=== PATIENT | female | born 1970 | race Two or more races ===

== ENCOUNTER 2017-05-14 09:52 | Inpatient (IN) | payer BC ==
[~2017-05-14] VITALS: Ht 157.5 cm; Wt 117.9 kg
[2017-05-14] VITALS (23 sets, daily range): BP systolic 102–161; BP diastolic 53–91
--- NOTE | 2017-05-14 09:52 | NUR ---
BIBRA 77 C/O LIGHTHEADEDNESS, DENIES CHEST PAIN. PLACED ON MONITOR. AWAITING MD ORDER
--- NOTE | 2017-05-14 10:41 | NUR ---
CODE STROKE ACTIVATED
--- NOTE | 2017-05-14 10:42 | NUR ---
LAC #18 IV ACCESS. BLOOD SMAPLE COLLECTED SENT TO LAB
--- NOTE | 2017-05-14 10:46 | NUR ---
PT TAKEN TO CT VIA ACLS PROTOCOL
[2017-05-14 10:52] LABS: BASOPHILS # (AUTO) 0.1 /CMM (0.0-0.2); BASOPHILS % (AUTO) 1.1 % (0.0-2.0); EOSINOPHILS # (AUTO) 0.1 /CMM (0.0-0.7); EOSINOPHILS % (AUTO) 0.7 % (0.0-6.0); HEMATOCRIT 43 % (33-45); HEMOGLOBIN 14.5 g/dL (11.5-14.8); LYMPHOCYTES # (AUTO) 2.3 /CMM (0.8-4.8); LYMPHOCYTES % (AUTO) 21.4 % (20.0-44.0); MEAN CORPUSCULAR HEMOGLOBIN 31 PG (26.0-33.0); MEAN CORPUSCULAR HGB CONC 34 g/dl (31.0-36.0); MEAN CORPUSCULAR VOLUME 92 fL (82-100); MONOCYTES # (AUTO) 0.4 /CMM (0.1-1.30); MONOCYTES % (AUTO) 3.8 % (2.0-12.0); NEUTROPHILS # (AUTO) 7.7 /CMM (1.8-8.9); PLATELET COUNT (AUTO) 226 /CMM (150-450); RDW COEFFICIENT OF VARIATION 12.4 (11.5-15.0); RED BLOOD CELL COUNT(AUTO) 4.66 MIL/uL (4.0-5.2); WHITE BLOOD COUNT (AUTO) 10.6 K/uL (4.3-11.0)
--- NOTE | 2017-05-14 10:55 | NUR ---
PT BACK FROM CT
[2017-05-14 11:01] LABS: CALCIUM, SERUM 9.1 mg/dL (8.5-10.1); CARBON DIOXIDE 25 mmol/L (21-32); CHLORIDE 104 mmol/L (98-107); GLUCOSE 113 mg/dL (74-106); POTASSIUM 4.4 mmol/L (3.5-5.1); SODIUM SERUM 138 mmol/L (136-145); UREA NITROGEN, BLOOD 10 mg/dL (7-18)
[2017-05-14 11:05] LABS: INR 0.89 (0.87-1.13); PROTHROMBIN TIME 9.3 SECS (9.5-12.7)
[2017-05-14 11:07] LABS: ALANINE AMINOTRANSFERASE 31 U/L (12-78); ALBUMIN 3.9 g/dL (3.4-5.0); ALKALINE PHOSPHATASE 61 U/L (46-116); ASPARTATE AMINOTRANSFERASE 26 U/L (15-37); BILIRUBIN,DIRECT 0.1 mg/dL (0.0-0.2); BILIRUBIN,TOTAL 0.4 mg/dL (0.2-1.0); TOTAL PROTEIN, SERUM 7.8 g/dL (6.4-8.2)
[2017-05-14 11:09] LABS: TROPONIN I < 0.017 ng/mL (0.00-0.056)
[2017-05-14] MEDS ORDERED: DEXAMETHASONE SOD PHOSPHATE 10 MG/ML VIAL IV ONE (12:30)
[2017-05-14] MEDS ORDERED: DEXAMETHASONE SOD PHOSPHATE 4 MG/ML VIAL ONE (12:44)
--- NOTE | 2017-05-14 12:57 | NUR ---
PANEL CALL FOR PT ADMIT. DR WILFRED VAZQUEZ.
--- NOTE | 2017-05-14 13:10 | NUR ---
VERBAL ORDER ATIVAN 2MG VIA LAC #[address] PUENTE
--- NOTE | 2017-05-14 13:20 | NUR ---
CALLED HOUSE SUP FOR ICU BED
[2017-05-14] MEDS ORDERED: LORAZEPAM INJ 2 MG/ML VIAL IV ONE (13:30)
[2017-05-14] MEDS ORDERED: LORAZEPAM INJ 2 MG/ML VIAL ONE (13:33)
[2017-05-14] MEDS: LEVETIRACETAM (500MG) 500 MG in IV NS 0.9% 100 ML IV SCH ×2 (13:50→17:15)
--- NOTE | 2017-05-14 14:00 | NUR ---
GAVE REPORT TO PINA PEREZ ALTERED MENTAL STATUS BRAIN MASS SEIZURE. TRANSFER VIA ACLS PROTOCOL DR MORRISON ADMITTING. ICU
--- NOTE | 2017-05-14 14:12 | NUR ---
TEXTED DR. BLAS MRI APPROVAL.
--- NOTE | 2017-05-14 14:21 | NUR ---
TEXTED DR. BLAS FOR MRI BRAIN W/WO APPROVAL.
--- NOTE | 2017-05-14 14:35 | NUR ---
AUTOMOTIVE QUALITY MANAGER RECEIVED PATIENT FROM THE ER ON A GURNEY. 3 PERSON ASSIST TRANSFER. STABLE VITAL SINGS. SINUS RHYTHM ON MONITOR. AFEBRILE. PATIENT NOTED TO HAVE EXPRESSIVE APHAGIA. RIGHT SIDED WEAKNESS. NIH STROKE SCALE DONE. FAMILY AT BEDSIDE. WILL CONTINUE TO MONITOR AND PROVIDE CARE.
[2017-05-14] MEDS ORDERED: MAG HYDROX/AL HYDROX/SIMETH 30 ML UDC PO PRN (16:00)
[2017-05-14] MEDS ORDERED: HYDROCODONE/APAP 5/325MG 1 EACH TABLET PO PRN (16:00)
[2017-05-14] MEDS ORDERED: LORAZEPAM INJ 2 MG/ML VIAL IV PRN (16:00)
[2017-05-14] MEDS ORDERED: MAGNESIUM HYDROXIDE 30 ML UDC PO PRN (16:00)
[2017-05-14] MEDS ORDERED: ONDANSETRON HCL/PF 4 MG/2 ML VIAL IVP PRN (16:00)
[2017-05-14] MEDS ORDERED: Z GUARD REMEDY 2 OZ OINT TP PRN (16:00)
[2017-05-14] MEDS: IV NS 0.9% 1,000 ML IV PRN (17:15)
[2017-05-14] MEDS: DEXAMETHASONE SOD PHOSPHATE 10 MG/ML VIAL IV SCH (17:15)
[2017-05-14 17:23] LABS: ABG BASE EXCESS -1.8 mmol/L; ABG OXYGEN SATURATION 96.7 % (92.0-98.5); ABG PH 7.408 (7.350-7.450); ABG PO2 93.9 mmHg (75.0-100.0); AaDO2 63.3 mmHg; COHb 0.3 % (0.5-1.5); MetHb 0.7 % (0.0-1.5); O2Hb 95.7 % (94.0-97.0); SITE, ABG Left Radial; VENT MODE, BG 2L N/C
--- NOTE | 2017-05-14 19:30 | NUR ---
CORRECTION WARDEN INITIAL NOTE RECEIVED PATIENT FROM KRYSTLE PEREZ. PT IN BED, A/A/O X4. AT BEDSIDE. PT HAS EPISODES OF APHASIA BUT IS ABLE TO VERBALIZE HER NEEDS WITH TIME. LUNG SOUNDS DIMINISHED. BOWEL SOUNDS PRESENT. CONTINENT TO BOTH URINE AND STOOL. PULSES PRESENT. IV PATENT AND INTACT. SKIN INTACT. AWAITING PASTE UP ARTIST APPRENTICE ARRIVAL. BED IN LOW LOCKED POSITION. CALL LIGHT WITHIN REACH. WILL CONTINUE TO MONITOR.
--- NOTE | 2017-05-14 19:45 | NUR ---
MEDIA DEVELOPER FRONT OFFICE ATTENDANT HERE TO TRANSPORT. ACLS PROTOCOL USED FOR TRANSPORT. ATIVAN 1MG ADMINISTERED FOR CLAUSTROPHOBIA. WILL CONTINUE TO MONITOR.
--- NOTE | 2017-05-14 20:55 | NUR ---
DINING CAR WAITER/WAITRESS RETURNED FROM MRI. PT TOLERATED MRI WELL. WILL CONTINUE TO MONITOR
--- NOTE | 2017-05-14 23:50 | NUR ---
LEGAL STENOGRAPHER PT USED BEDPAN WITH MINIMAL ASSISTANCE. PT IS A/A/O X2 FORGETFUL AND IS HAVING DYSARTHRIA. CLEANED AND REPOSITIONED FOR COMFORT. BED IN LOW LOCKED POSITION. CALL LIGHT WITHIN REACH. WILL CONTINUE TO MONITOR.
[2017-05-15] VITALS (22 sets, daily range): BP systolic 79–148; BP diastolic 44–119
[2017-05-15] MEDS: DEXAMETHASONE SOD PHOSPHATE 10 MG/ML VIAL IV SCH ×5 (00:26→23:31)
[2017-05-15] MEDS: LEVETIRACETAM (500MG) 500 MG in IV NS 0.9% 100 ML IV SCH ×3 (01:30→20:14)
--- NOTE | 2017-05-15 01:30 | NUR ---
EQUIPMENT MAINTENANCE TECHNICIAN NON ADMIN SCHEDULED 0130 KEPPRA DOSE NOT GIVEN, 0400 KEPPRA DOSE IS WHAT IS AVAILABLE. WILL SPEAK WITH PHARMACIST IN AM.
--- NOTE | 2017-05-15 05:00 | NUR ---
GENERAL EDUCATION PROFESSOR PT A/A/O X4. SPEECH IS CLEAR AND IS ABLE TO ARTICULATE. PT IS COMPLAINING OF A HEADACHE, WILL MEDICATE. BED IN LOW LOCKED POSITION. CALL LIGHT WITHIN REACH. WILL CONTINUE TO MONITOR.
[2017-05-15 05:10] LABS: BASOPHILS % (AUTO) 0.3 % (0.0-2.0); EOSINOPHILS % (AUTO) 0.1 % (0.0-6.0); HEMATOCRIT 42 % (33-45); HEMOGLOBIN 14.4 g/dL (11.5-14.8); LYMPHOCYTES % (AUTO) 9.2 % (20.0-44.0); MEAN CORPUSCULAR HEMOGLOBIN 32 PG (26.0-33.0); MEAN CORPUSCULAR HGB CONC 34 g/dl (31.0-36.0); MEAN CORPUSCULAR VOLUME 93 fL (82-100); MONOCYTES # (AUTO) 0.1 /CMM (0.1-1.30); MONOCYTES % (AUTO) 0.5 % (2.0-12.0); NEUTROPHILS # (AUTO) 10.1 /CMM (1.8-8.9); NEUTROPHILS % (AUTO) 89.9 % (43.0-81.0); PLATELET COUNT (AUTO) 216 /CMM (150-450); RDW COEFFICIENT OF VARIATION 13.3 (11.5-15.0); RED BLOOD CELL COUNT(AUTO) 4.51 MIL/uL (4.0-5.2); WHITE BLOOD COUNT (AUTO) 11.3 K/uL (4.3-11.0)
[2017-05-15 05:44] LABS: ALBUMIN 3.3 g/dL (3.4-5.0); BILIRUBIN,TOTAL 0.3 mg/dL (0.2-1.0); CALCIUM, SERUM 8.7 mg/dL (8.5-10.1); CREATININE 0.8 mg/dL (0.6-1.3); MAGNESIUM 2.1 mg/dL (1.8-2.4); TOTAL PROTEIN, SERUM 7.3 g/dL (6.4-8.2)
[2017-05-15 05:45] LABS: THYROID STIMULATING HORMONE 1.013 uIU/mL (0.358-3.74)
--- NOTE | 2017-05-15 07:00 | NUR ---
DEAN OF MEN INITIAL NOTE RECEIVED PATIENT FROM PM . PT IN BED, A/A/O X4. PATIENT IS ABLE TO VERBALIZE HER NEEDS WITH TIME. LUNG SOUNDS CLEAR . BOWEL SOUNDS PRESENT. CONTINENT TO BOTH URINE AND STOOL. PULSES PRESENT. IV PATENT AND INTACT. SKIN INTACT. BED IN LOW LOCKED POSITION. CALL LIGHT WITHIN REACH. WILL CONTINUE TO MONITOR.
--- NOTE | 2017-05-15 09:40 | NUR ---
GAS MANAGER NOTE PATIENT COMPLAINING OF INCREASED NUMBNESS ON THE RIGHT SIDE ( HAND AND BELOW THE KNEE) PATIENT STATED THAT SHE IS ALSO EXPERIENCING HALLUCINATION SUCH HEARING VOICES SAYING " CAN YOU HEAR ME" " ARE YOU OKAY" RN REASSURES THE PATIENT, PATIENT NEUROLOGIST ON THE CASE CALLED MESSAGE LEFT FOR MD TANG. RN AWAIT RETURN PHONE CALL. RN WILL CONTINUE TO FOLLOW PATIENT AND BROTHER IN THE ROOM WITH PATIENT CURRENTLY PATIENT SIGNED CONSENT FOR ABDOMINAL PELVS AND CHEST CT W/ CONTRAST .
--- NOTE | 2017-05-15 10:22 | NUR ---
BENEFITS DIRECTOR NOTE RN SPOKE WITH MD TANG IN REGARDS TO THE PATIENT STATED HALLUCINATIONS WELL THE NUMBNESS , MD TANG STATES THESE IS NORMAL SIGNS AND SYMPTOMS DURE TO THE STEROIDS AND THAT SHE WILL DISCUSS THAT WITH THE PATIENT. MD TANG ALSO ORDERED PRN SEROQUEL Q6HRS AND A ONCOLOGY CONSULT. RN WILL CONTUE TO FOLLOW THE PATIENT PROGRESS
[2017-05-15] MEDS: QUETIAPINE FUMARATE 25 MG TABLET PO PRN ×2 (10:26→16:46)
[2017-05-15] MEDS: IV NS 0.9% 1,000 ML IV PRN (11:39)
--- NOTE | 2017-05-15 12:21 | NUR ---
FEEDER CATCHER NOTE PATIENT VERBALIZED "SOMETIMES" HAVING AN ALLERGY TO IODINE AND OR SHELLFISH PATIENT STATED SHE EXPERIENCES NAUSEA AND VOMITING, HOWEVER SHE IS NO SPECIFIC IF ITCHING OR SWELLING OCCURS , RN NOTED ON THE CONTRAST SEDATION FORM PATIENT STATED ALLERGY TO SHELLFISH AND OR CONTRAST
[2017-05-15] MEDS ORDERED: GADOVERSETAMIDE 5 MMOL/10 ML VIAL IJ ONE (13:35)
[2017-05-15] MEDS ORDERED: GADOVERSETAMIDE 2.5 MMOL/5 ML VIAL IJ ONE (13:35)
--- NOTE | 2017-05-15 14:44 | NUR ---
SALAS Doll RN NOTE PATIENT TAKEN FOR CT SCAN WITHOUT CONTRAST. ORDERS CHANGED VIA MD MORRISON DUE TO PATIENT STATED ALLERGY TO IODINE AND SHELL FISH , RN HAS UPDATED PATIENT ALLERGIES CONSENT SIGNED AND PLACED IN THE PATIENTS CHART Addendum: 05/15/17 at 1522 by LANIE GRACIA RN TRANSFERRED PT TO CT SCAN DEPARTMENT VIA ACLS PROTOCOL , ATTACHED TO MONITOR , PT STABLE AT THIS TIME , WILL CONTINUE TO MONITOR
--- NOTE | 2017-05-15 17:30 | NUR ---
WATCH TRAIN ASSEMBLER NOTE PATIENT BEING TRANSFERRED TO [facility] , PATIENT AND FAMILY UPDATED ON THE PLAN OF CARE , PATIENT HELPS WITH ADLS , AND MAKES NEEDS KNOWN PATIENT IS CURRENTLY ON 2 L NASAL CANNULA TOLERATING WELL , NO DISTRESS NOTED PATIENT PM MEDICATION ADMINISTERED WITHOUT ISSUE PATIENT FAMILY IS AT BEDSIDE , PATIENT CONTINUES TO STATE HALLUCINATION, HOWEVER RIGHT SIDED NUMBNESS NO LONGER PRESENT AT THIS TIME , PATIENT VOIDS USING BEDPAN AND 2 NURSE ASSIST PATIENT. RN WILL GIVE REPORT TO [facility] NURSE FOR CONTINUED CARE
--- NOTE | 2017-05-15 18:00 | NUR ---
GED TEACHER NOTE PATIENT TRANSFERRED TO ROOM 101 [facility] VIA ACLS PROTOCOL - STATUS PATIENT STABLE VITALS ASSESSED AND REPORT GIVEN TO BAL PEREZ , RN ACKNOWLEDGED PLAN OF CARE PATIENT FAMILY AT BEDSIDE , PATIENT PLACED ON TELE MONITORING AND RESTARTED ON IV FLUIDS ,PM DINNER GIVEN TO PATIENT UPON ENTERING THE ROOM , PATIENT HAS NO SIGNS OF DISTRESS NOTED , ALL PM MEDICATION CARRIED OUT , [facility] NURSE WILL CONTINUE CARE.
--- NOTE | 2017-05-15 18:15 | NUR ---
RN INITIAL NOTE PATIENT RECEIVED FROM ICU VIA [place]. RECEIVED REPORT FROM PRICILLA. PATIENT AWAKE, ALERT AND ORIENTED. NO S/S OF PAIN OR DISCOMFORT. DENIES PAIN AT THIS TIME. ABLE TO MAKE NEEDS KNOWN. SKIN IS WARM AND DRY TO TOUCH. IV SITE FLUSHED, PATENT. RESPIRATIONS ARE EVEN AND UNLABORED. SATING WELL ON ROOM AIR. NO S/S OF RESPIRATORY DISTRESS OR SOB. SINUS RHYTHM ON TELE MONITOR. SAFETY PRECAUTIONS IMPLEMENTED, BED IN LOCKED, LOW POSITION WITH TWO SIDE RAILS UP. CALL LIGHT AND BELONGINGS WITHIN EASY REACH. WILL CONTINUE TO MONITOR.
--- NOTE | 2017-05-15 19:30 | NUR ---
RN INITIAL NOTES RECEIVED THE PATIENT AWAKE ON BED, A/O X3, AT BEDSIDE. ON 2L NASAL CANNULA, SATURATING WELL, NO S/S OF RESP DISTRESS. CURRENTLY SR ON THE MONITOR, HR 60-70'S. PT IS CONTINENT, ADVISED THE PATIENT TO CALL FOR ASSISTANCE WITH USE OF BEDPAN TO AVOID WALKING TO THE BATHROOM FOR PATIENT SAFETY. LEFT AC 18G AND LEFT HAND 20G WITH NS @ 75MLS/HR, NO S/S OF INFILTRATION/INFECTION, DRESSING CDI. BED LOW AND LOCKED, SIDERAILS UP, CALL LIGHT WITHIN REACH. WILL MONITOR
[2017-05-15] MEDS: ACETAMINOPHEN 325 MG TABLET PO PRN (20:14)
[2017-05-15] MEDS: ZOLPIDEM TARTRATE 5 MG TABLET PO PRN (23:33)
[2017-05-16] VITALS: BP 144/84
[2017-05-16] MEDS: IV NS 0.9% 1,000 ML IV PRN ×2 (03:54→21:28)
[2017-05-16 04:00] VITALS: BP 112/61
[2017-05-16] MEDS: DEXAMETHASONE SOD PHOSPHATE 10 MG/ML VIAL IV SCH ×3 (05:07→17:36)
--- NOTE | 2017-05-16 06:30 | NUR ---
RN CLOSING NOTES PT REMAINS STABLE OF THE MOMENT. ALL DUE MEDS GIVEN. WILL ENDORSE TEZ TO AM RN
[2017-05-16 08:00] VITALS: BP 115/57
[2017-05-16] MEDS ORDERED: methylPREDNISolone SOD SUCC 125 MG/2ML VIAL IV ONE (08:30)
[2017-05-16] MEDS: LEVETIRACETAM (500MG) 500 MG in IV NS 0.9% 100 ML IV SCH ×2 (09:57→21:28)
[2017-05-16] MEDS: QUETIAPINE FUMARATE 25 MG TABLET PO PRN ×2 (11:32→18:20)
[2017-05-16 12:00] VITALS: BP 129/69
[2017-05-16] MEDS: ACETAMINOPHEN 325 MG TABLET PO PRN (13:39)
[2017-05-16] MEDS ORDERED: IV NS 0.9% 250 ML IV ONE (13:58)
[2017-05-16] MEDS ORDERED: IOHEXOL-300 100 ML VIAL IV ONE (13:58)
--- NOTE | 2017-05-16 19:15 | NUR ---
RN INITIAL NOTES RECEIVED PATIENT IN BED, AWAKE, ALERT AND ORIENTED, OBSERVED WITH SLOW RESPONSES. PATIENT COMPLAINING OF MILD HEADACHE, MEDICATED DURING THE PRIOR SHIFT, PATIENT NOT REQUESTING FOR ANY PAIN MEDICATIONS AT THIS TIME. PATIENT ALSO STATING THAT SHE FEELS THAT EVERYTHING IS "MAGNIFIED" REFERRING TO HER SENSES, CONTRIBUTING TO HER HEADACHE. PATIENT'S SAFETY AND COMFORT ENSURED. FAMILY AT BEDSIDE. PATIENT ON 2LPM OF O2 VIA NC, RESPIRATION IS EVEN AND UNLABORED WITH NO DISTRESS. HOB ELEVATED TOLERATED. WITH JANEY MIDLINE WITH IVF ORDERED. L AC PIV, FLUSHED AND INTACT. PROVIDED WITH SOME EMOTIONAL SUPPORT NEEDED BY THE PATIENT, LISTENED ATTENTIVELY NEEDED. PATIENT'S NEEDS ANTICIPATED AND MET. SAFETY AND COMFORT ENSURED. FAMILY AT BEDSIDE. CALL LIGHT AT BEDSIDE. WILL MONITOR.
[2017-05-16 20:00] VITALS: BP 132/78
[2017-05-16] MEDS: ZOLPIDEM TARTRATE 5 MG TABLET PO PRN (21:28)
[2017-05-17] MEDS: DEXAMETHASONE SOD PHOSPHATE 10 MG/ML VIAL IV SCH ×3 (00:13→12:16)
[2017-05-17] MEDS: ACETAMINOPHEN 325 MG TABLET PO PRN (00:17)
[2017-05-17 04:00] VITALS: BP 140/80
[2017-05-17 08:00] VITALS: BP 127/75
[2017-05-17] MEDS: LEVETIRACETAM (500MG) 500 MG in IV NS 0.9% 100 ML IV SCH (08:34)
[2017-05-17] MEDS: QUETIAPINE FUMARATE 25 MG TABLET PO PRN (08:45)
--- NOTE | 2017-05-17 10:33 | NUR ---
received a call from jalil schmidt office faxed facesheet ,plan to transfer to [facility],confirmed by apolinar chavez,dr. arguelles made aware.per apolinar chavez he will let pt. know on his rounds.
[2017-05-17 12:00] VITALS: BP 138/78
[2017-05-17 13:11] LABS: CA 27.29 13.5 U/mL (0.0-38.6)
--- NOTE | 2017-05-17 13:42 | NUR ---
DISCHARGE NOTE TRANSFERRING TO [facility]. PAPER WORK COMPLETE, REVIEWED WITH CHARGE NURSE. MED LIST INCLUDED. EDUCATION PROVIDED. REPORT GIVEN TP NATALIE CHARGE NURSE ON NEURO UNIT. TO FOLLOW UP WITH MED RECORDS FROM [facility] REGARDING PELVIS US AND MAMMOGRAM. PT REFUSED PELVIS US BECAUSE SAID SHE HAD ONE RECENTLY. LAC IV REMOVED. NO BLEEDING. JANEY MIDLINE STAYING WITH PATIENT. CURRENT BREATHINGE MAGUI AND UNLABORED, A+OX3, SLOW TO RESPOND, REPEATS HERSELF, SOMEWHAT FORGETFUL. AMBULATES WITH ASSISTANCE. NO BM SINCE 05/14, INFORMED ANA Cheng. SHIRIN AT BED SIDE. AMBULANCE TO OILING MACHINE OPERATOR NOW. DX RESULTS IN CHART WITH PATIENT.NO NEW SKIN BREAK DOWN, SKIN INTACT. NO BELONGINGS WITH PATIENT- STATED HE TOOK 2 RINGS HOME. NO CLOTHES, NO MEDICATION.PATIENT SIGN TRANSFER AND D/C PAPER WORK & VERBALIZED UNDERSTANDING.
--- NOTE | 2017-05-17 14:00 | NUR ---
discharge patient left in stable condition accompanied by 2 emt and
[2017-05-17 14:12] LABS: AFP, TUMOR MARKER 2.5 ng/mL (0.0-8.3); CANCER AG, 125 15.7 U/mL (0.0-38.1); CANCER AG, 15-3 5.3 U/mL (0.0-25.0); CARCINOEMBRYONIC AG (CEA) 0.7 ng/mL (0.0-4.7)
[2017-05-17] MEDS ORDERED: LEVETIRACETAM SOL (5 ML) 100 MG/ML UDC PO SCH (21:00)
== END 2017-05-17 15:01 | disposition short-term general hospital (02) | DRG 840 ==
LOC: ER 09:54 → ICU 14:02 → TELE-TD 05-15 18:23 → MEDSG1 05-16 09:14
PROVIDERS: ADMIT Internal Medicine; ATTEND Internal Medicine
PROC: 05H533Z Insertion of Infusion Device into Right Subclavian Vein, Percutaneous Approach (ICD-10-PCS; principal; 2017-05-16)
DX: C85.90 Non-Hodgkin lymphoma, unspecified, unspecified site (principal); G93.6 Cerebral edema; C79.31 Secondary malignant neoplasm of brain; R56.9 Unspecified convulsions; E66.01 Morbid (severe) obesity due to excess calories; G35 Multiple sclerosis; Z68.42 Body mass index [BMI] 45.0-49.9, adult; K80.20 Calculus of gallbladder without cholecystitis without obstruction; Z81.8 Family history of other mental and behavioral disorders; Z80.9 Family history of malignant neoplasm, unspecified; K42.9 Umbilical hernia without obstruction or gangrene; F41.9 Anxiety disorder, unspecified; C80.1 Malignant (primary) neoplasm, unspecified; N88.9 Noninflammatory disorder of cervix uteri, unspecified
CPT/HCPCS: 36415; 36569; 36600; 70450-TC; 70553-TC; 71250-TC; 71260-TC; 80048-TC; 80053-TC; 80061-TC; 80076-TC; 82105; 82378; 83615-TC; 83735-TC; 84100-TC; 84443-TC; 84484-TC; 84703-TC; 85025-TC; 85730-TC; 86300; 86301; 86304; 87081-TC; 92611-TC; 93307-TC; A4606; A9579; J1100; J1953; J2060; J2405; J2930; J7030; J7050; Q9967; Z7610